=== PATIENT | female | born 1955 | race Caucasian/White ===

== ENCOUNTER → 2016-04-28 | Outpatient (CLI) | payer BC ==
[~2016-04-28] MED LIST: ATEN25TA PO
--- NOTE | 2016-04-29 18:52 | KCIC ---
Bilateral digital screening mammograms with CAD: HISTORY Routine screening COMPARISON Comparison is made to previous examinations dated 04/12/2013 and 09/19/2008. FINDINGS Breast density category C. The skin and nipples show no abnormalities. No abnormal lymph nodes are seen in the axilla. The breast parenchyma shows heterogeneous density. There are no dominant masses, suspicious calcifications or architectural distortions. IMPRESSION No evidence of malignancy. Recommend routine annual mammographic screening. This study was interpreted with the benefit of Computerized Aided Detection (CAD). Mammography is not 100% sensitive in detecting breast cancer. Therefore, a self breast exam and a clinical breast exam are very important. A negative mammogram does not negate a clinically suspicious finding and should not result in a delay in biopsying a clinically suspicious abnormality. BI-RADS category 1. Negative. This patient's information has been entered into a reminder system for the patient to be notified with the results of this examination and a target date for her next mammograms. Electronically signed by: Josiane Mari MD (Apr 29, 2016 18:51:29)
== END | disposition home or self-care (01) ==
LOC: KCIC MAMMO 12:17
PROVIDERS: ATTEND Family Medicine
DX: Z12.31 Encounter for screening mammogram for malignant neoplasm of breast (principal)
CPT/HCPCS: G0202; 77067